=== PATIENT | male | born 1965 | race Caucasian/White ===

== ENCOUNTER 2023-05-02 10:30 | Outpatient (CLI) | payer MEDICARE ==
[2023-05-02] MEDS ORDERED: Magnevist 469MG/ML 20 ML VIAL ONE (10:46)
== END 2023-05-02 10:31 | disposition home or self-care (01) ==
LOC: MRI 10:30
PROVIDERS: ATTEND Psychiatry & Neurology Neurology
DX: R41.3 Other amnesia (principal); J34.89 Other specified disorders of nose and nasal sinuses
CPT/HCPCS: 70553

== ENCOUNTER 2023-05-17 05:51 | Day surgery (SDC) | payer MEDICARE ==
[2023-05-16 09:55] VITALS: BMI 25.8
[2023-05-17] MEDS ORDERED: fentaNYL 50 mcg/mL 1 mL Vial ONE (07:22)
[2023-05-17] MEDS ORDERED: Ketamine 50 MG/ML (10ML VIAL) ONE (07:25)
[2023-05-17] MEDS ORDERED: PROPOFOL 200 MG/20 ML VIAL ONE (07:54)
== END 2023-05-17 09:12 | disposition home or self-care (01) ==
LOC: SDC 05:51
PROVIDERS: ATTEND Internal Medicine
PROC: 0DJ08ZZ Inspection of Upper Intestinal Tract, Via Natural or Artificial Opening Endoscopic (ICD-10-PCS; principal; 2023-05-17)
PROC: 0DBK8ZZ Excision of Ascending Colon, Via Natural or Artificial Opening Endoscopic (ICD-10-PCS; 2023-05-17)
PROC: 0DBL8ZZ Excision of Transverse Colon, Via Natural or Artificial Opening Endoscopic (ICD-10-PCS; 2023-05-17)
PROC: 0DBN8ZZ Excision of Sigmoid Colon, Via Natural or Artificial Opening Endoscopic (ICD-10-PCS; 2023-05-17)
DX: D12.2 Benign neoplasm of ascending colon (principal); D12.3 Benign neoplasm of transverse colon; K64.8 Other hemorrhoids; K63.5 Polyp of colon; D50.9 Iron deficiency anemia, unspecified; I10 Essential (primary) hypertension; J45.909 Unspecified asthma, uncomplicated; F41.9 Anxiety disorder, unspecified; K21.9 Gastro-esophageal reflux disease without esophagitis; F17.210 Nicotine dependence, cigarettes, uncomplicated; Z86.711 Personal history of pulmonary embolism; Z90.89 Acquired absence of other organs; Z79.01 Long term (current) use of anticoagulants; Z79.899 Other long term (current) drug therapy
CPT/HCPCS: 43235; 45385; J3010; 88305; J2704

== ENCOUNTER 2024-04-19 08:20 | Outpatient (CLI) | payer MEDICARE | END 2024-04-19 08:21 | disposition home or self-care (01) | LOC: ULT 08:20 | PROVIDERS: ATTEND Internal Medicine Cardiovascular Disease | DX: R18.8 Other ascites (principal) | CPT/HCPCS: 76700 ==